=== PATIENT | male | born 1960 | race Caucasian/White ===

== ENCOUNTER 2016-07-15 09:04 | Emergency (ER) | payer MEDICARE ==
[2016-07-15] MEDS ORDERED: OXYCODONE-ACETAMINOPHEN 5-325 MG TABLET PO ONE (11:02)
[2016-07-15] MEDS ORDERED: METHOCARBAMOL 500 MG TABLET PO ONE (11:02)
[2016-07-15 11:34] LABS: ABSOLUTE BASOPHILS # (AUTO) 0.1 10^3/uL (0.0-0.2); ABSOLUTE EOSINOPHILS # (AUTO) 0.1 10^3/uL (0.0-0.6); ABSOLUTE LYMPHOCYTES (AUTO) 1.1 10^3/uL (0.5-4.7); ABSOLUTE MONOCYTES (AUTO) 0.5 10^3/uL (0.1-1.4); ABSOLUTE NEUT (AUTO) 3.5 10^3/uL (1.7-8.2); BASOPHILS % (AUTO) 1.3 % (0-2); EOSINOPHILS % (AUTO) 1.7 % (0-6); HEMATOCRIT 41.4 % (37.9-51.0); HEMOGLOBIN 14.6 g/dL (13.5-17.0); HGB HCT DIFFERENCE 2.4; LYMPHOCYTES % (AUTO) 21.3 % (13-45); MEAN CORPUSCULAR HEMOGLOBIN 30.8 pg (27.0-33.4); MEAN CORPUSCULAR HGB CONC 35.1 g/dL (32.0-36.0); MEAN CORPUSCULAR VOLUME 88 fl (80-97); MONOCYTES % (AUTO) 9.4 % (3-13); RED BLOOD COUNT 4.72 10^6/uL (4.35-5.55); RED CELL DISTRIBUTION WIDTH 13.7 % (11.5-14.0); SEGMENTED NEUTROPHILS % (AUTO) 66.3 % (42-78); WHITE BLOOD COUNT 5.3 10^3/uL (4.0-10.5)
[2016-07-15 11:52] LABS: ALANINE AMINOTRANSFERASE 43 U/L (21-72); ALBUMIN 4.4 g/dL (3.5-5.0); ALKALINE PHOSPHATASE 43 U/L (38-126); ANION GAP 15 (5-19); ASPARTATE AMINO TRANSFERASE 21 U/L (17-59); BILIRUBIN,DIRECT 0.2 mg/dL (0.0-0.4); BILIRUBIN,TOTAL 0.5 mg/dL (0.2-1.3); BLOOD UREA NITROGEN 17 mg/dL (7-20); CARBON DIOXIDE 27 mmol/L (22-30); CHLORIDE 102 mmol/L (98-107); CREATINE KINASE 103 U/L (55-170); GLUCOSE 86 mg/dL (75-110); LIPASE 137.5 U/L (23-300); POTASSIUM 4.4 mmol/L (3.6-5.0); SODIUM 143.7 mmol/L (137-145); TOTAL PROTEIN 6.7 g/dL (6.3-8.2)
--- NOTE | 2016-07-15 12:20 | ER Document Report ---
ED Neck/Back Problem - General Chief Complaint: Back Pain Stated Complaint: BACK PAIN Notes: Patient is complaining of pain in the lower lumbar region of his back bilaterally since about Friday, 5 days ago. He recalls no unusual activity or heavy lifting or straining of his back. Has not had problems with his lumbar back in the past. He did have some neck pain with some numbness in his right arm and was seen at a local urgent care about 3 weeks ago for this condition. He was told he had bone spurs on an x-ray of the neck. He has an appointment scheduled to see a neurologist for this problem on Friday. He was not having lower, lumbar back pain at that time. Patient says the pain goes down the back of his right leg. Patient has a significant past history for having prostate cancer for which he had his prostate removed in 2000. He had a recurrence of the prostate cancer about a year ago and underwent radiation therapy at that time. He is being followed by a urologist in [place], Dr. Cross and last saw him 2 months ago and was told his PSA was okay at that time. Patient has had problems with urinary incontinence and had to retire because of that. He underwent a procedure at [facility] in December,, to insert a device to help him urinate to help control the urinary incontinence. Patient was diagnosed with leukemia in 2000 and is undergoing chemotherapy most recently in [id number]. He is under the care of a Dr. Correa, in [place]. TRAVEL OUTSIDE OF THE [place] IN LAST 30 DAYS: No - Related Data Allergies/Adverse Reactions: No Known Allergies Allergy (Verified 07/15/16 09:14) Past Medical History - Social History Smoking Status: Never Smoker Chew tobacco use (# tins/day): No Frequency of alcohol use: None Drug Abuse: None Family History: Reviewed & Not Pertinent Patient has suicidal ideation: No Patient has homicidal ideation: No - Past Medical History Cardiac Medical History: Reports: Hx Hypercholesterolemia, Hx Hypertension Denies: Hx Coronary Artery Disease Pulmonary Medical History: Reports: Hx Pneumonia - April 2012 ("touch") Endocrine Medical History: Reports: Hx Diabetes Mellitus Type 1, Hx Diabetes Mellitus Type 2, Hx Hypothyroidism Malignancy Medical History: Reports 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 Denies recent illness. Did have recent neck pain and radiculopathy into the right arm, seen at a local urgent care and diagnosed with bone spurs. EENT: Denies eye, ear, nose or mouth or throat pain or other symptoms. CARDIOVASCULAR: Denies chest pain. RESPIRATORY: Denies cough or chest congestion or shortness of breath. GASTROINTESTINAL: Denies abdominal pain or nausea, vomiting, or diarrhea. GENITOURINARY: Denies difficulty or painful urinating, urinary frequency, blood in urine. MUSCULOSKELETAL: Denies joint pain or swelling. See history of present illness regarding back and neck pain. SKIN: Denies rash. HEMATOLOGIC : Denies easy bruising or bleeding. LYMPHATIC: Denies swollen glands. NEUROLOGICAL: Denies loss of consciousness or altered mental status. Denies headache. Denies problems with balance or speech. Denies sensory loss or numbness. Denies motor deficits. Patient is able to stand and walk, but it's painful to do so. PSYCHIATRIC: Denies anxiety or stress. History of depression. ALL OTHER SYSTEMS REVIEWED AND NEGATIVE. Physical Exam - Vital signs Vitals: Temp Pulse Resp BP Pulse Ox 98.0 F 62 20 165/80 H 98 07/15/16 09:11 07/15/16 09:11 07/15/16 09:11 07/15/16 09:11 07/15/16 09:11 Interpretation: Normal - Notes Notes: PHYSICAL EXAMINATION: GENERAL: Well-appearing, in no acute distress. Vital signs are all essentially normal. Afebrile. HEAD: Atraumatic, normocephalic. NECK: Normal range of motion, supple. Indicates discomfort with neck movement. LUNGS: Breath sounds clear and equal bilaterally. HEART: Regular rate and rhythm without murmurs. ABDOMEN: Soft, nontender. No guarding or rebound. No masses. No bruits heard. Good femoral pulses bilaterally. BACK: Tender paralumbar muscles bilaterally. EXTREMITIES: Normal range of motion without pain. Negative straight leg raising bilaterally. NEUROLOGICAL: Normal speech, appears painful to stand or walk. Normal sensory , motor, and reflex exams. Awake, alert, and oriented x3. Cranial nerves normal. PSYCH: Normal mood, normal affect. SKIN: Warm, dry, no rashes. Course - Re-evaluation Re-evalutation: 07/15/16 13:21 All the patient's lab studies are normal. Urinalysis negative. PSA negative. CBC shows normal cell counts. Patient says he has an appointment to see a neurologist Friday, in 2 days, regarding his neck pain and symptoms. I advised him to make sure that he informs the neurologist of this lumbar back pain that is also having. I did check on the [facility] pharmacy about the patient's prescriptions for controlled substances and found that he had had just 3 small prescriptions filled last fall, but none in the past couple of months. I think the patient is legitimate we experiencing back pain, unfortunately without a obvious cause that we can treat. Therefore, going to treat him symptomatically with muscle relaxer and pain medication. - Vital Signs Vital signs: Temp Pulse Resp BP Pulse Ox 97.5 F 63 18 190/77 H 96 07/15/16 13:33 07/15/16 13:33 07/15/16 13:33 07/15/16 13:33 07/15/16 13:33 - Laboratory Result Diagrams: 07/15/16 11:10 07/15/16 11:10 - Diagnostic Test Radiology reviewed: Image reviewed, Reports reviewed - Ultrasound of the aorta shows no evidence of an abdominal aortic aneurysm. Radiology results interpreted by me: 07/15/16 13:20 X-rays of the lumbosacral spine are all normal. Discharge - Discharge Clinical Impression: Acute lumbar back pain Qualifiers: Back pain laterality: bilateral Sciatica presence: with sciatica Sciatica laterality: sciatica of right side Qualified Code(s): M54.41 - Lumbago with sciatica, right side Condition: Stable Disposition: HOME, SELF-CARE Additional Instructions: LOW BACK PAIN: Three out of every four people will have an episode of disabling back pain during their lifetime. Most commonly the pain is due to straining of the muscles and ligaments in the low back. Usual treatment includes: (1) Rest on a firm surface. Avoid lying on your stomach. (2) Ice pack the painful area. After a few days, gentle heat may be used intermittently to relax the area, or ice packs can be continued. (3) Medication may be needed -- muscle relaxers and antiinflammatory medicines are commonly used. (4) As the back improves, exercises are prescribed to strengthen the back and abdominal muscles. Your doctor will advise you on the proper care for your back at each stage in your recovery. You may be better in a few days -- or healing may take several weeks. If new symptoms of a "herniated disc" (radiation of pain, numbness, or tingling down the back of the leg or weakness in the leg) occur, you should be re-examined. Further testing may be necessary. ORAL NARCOTIC MEDICATION: You have been given a prescription for pain control. This medication is a narcotic. It's best taken with food, as nausea can result if taken on an empty stomach. Don't operate machinery or drive within six hours of taking this medication. Do not combine this medicine with alcohol, or with any medication which can cause sedation (such as cold tablets or sleeping pills) unless you get permission from the physician. Narcotics tend to cause constipation. If possible, drink plenty of fluids and eat a diet high in fiber and fruits. MUSCLE RELAXERS: Muscle relaxing medications are usually prescribed for acute muscle spasm or injury to the neck and back. They are often combined with antiinflammatory pain medication for increased relief. You may stop the muscle relaxer when the pain and stiffness have improved. Start the medication again if spasms recur. Muscle relaxers may cause drowsiness, especially with the first dose. Do not operate machinery or drive while under the effects of the medication. Most muscle relaxers last up to 24 hours. Do not combine the medication with alcohol. FOLLOW-UP CARE: If you have been referred to a physician for follow-up care, call the physician s office for an appointment as you were instructed or within the next two days. If you experience worsening or a significant change in your symptoms, notify the physician immediately or return to the Emergency Department at any time for re-evaluation. Make sure you informed the neurologist that you're going to see on Friday of the back pain that you're experiencing. You need to follow-up with your primary care physician because we do not manage chronic pain in the emergency department. Prescriptions: Methocarbamol [Robaxin 500 mg Tablet] 1,000 mg PO QID #60 tablet Oxycodone HCl/Acetaminophen [Percocet 5-325 mg Tablet] 1 - 2 tab PO Q4H PRN #15 tablet PRN Reason:
[2016-07-15 12:25] LABS: PROSTATE SPECIFIC ANTIGEN < 0.064 ng/mL (<4.00)
[2016-07-15 12:51] LABS: APPEARANCE,URINE CLEAR; BILIRUBIN,URINE NEGATIVE (NEGATIVE); GLUCOSE, URINE NEGATIVE (NEGATIVE); KETONES,URINE NEGATIVE (NEGATIVE); LEUKOCYTE ESTERASE,URINE NEGATIVE (NEGATIVE); NITRITE,URINE NEGATIVE (NEGATIVE); PROTEIN,URINE NEGATIVE (NEGATIVE); URINE SPECIFIC GRAVITY 1.004; UROBILINOGEN,URINE NEGATIVE mg/dL (<2.0)
[2016-07-15 13:34] VITALS: BP 190/77
== END 2016-07-15 13:34 | disposition home or self-care (01) ==
LOC: ER 09:04
DX: M54.41 Lumbago with sciatica, right side (principal); M54.9 Dorsalgia, unspecified; Z85.46 Personal history of malignant neoplasm of prostate
CPT/HCPCS: 99284; 36415; 82550; 83690; 84153; 85025; 80053; 81001; 72110; 76706; A9270 ×2

== ENCOUNTER 2016-12-16 08:53 | Emergency (ER) | payer MEDICARE ==
[2016-12-16 09:07] VITALS: BP 182/69
[2016-12-16] MEDS ORDERED: CIPROFLOXACIN HCL/DEXAMETH OTIC DROP 7.5 ML AS ONE (09:33)
--- NOTE | 2016-12-16 09:36 | ER Document Report ---
HPI - HPI Patient complains to provider of: Left ear pain Onset: Other - 3 days Onset/Duration: Persistent Quality of pain: Achy Pain Level: 4 Context: Patient presents complaining of left ear pain with drainage for the past 3 days. Patient does report pain started after he had been swimming in his girlfriend's pool. Associated Symptoms: Other - Left ear pain Exacerbated by: Denies Relieved by: Denies Similar symptoms previously: Yes Recently seen / treated by doctor: No - ROS ROS below otherwise negative: Yes Systems Reviewed and Negative: Yes All other systems reviewed and negative - CONSTITUTIONAL Constitutional: DENIES: Fever - EENT EENT: REPORTS: Ear Pain - GASTROINTESTINAL Gastrointestinal: DENIES: Nausea, Patient vomiting - REPRODUCTIVE Reproductive: DENIES: : - MUSCULOSKELETAL Musculoskeletal: DENIES: Neck Pain - DERM Skin Color: Normal Skin Problems: None Past Medical History - General Information source: Patient - Social History Smoking Status: Never Smoker Frequency of alcohol use: None Drug Abuse: None Lives with: Spouse/Significant other Family History: Reviewed & Not Pertinent Patient has suicidal ideation: No Patient has homicidal ideation: No - Past Medical History Cardiac Medical History: Reports: Hx Hypercholesterolemia, Hx Hypertension Denies: Hx Coronary Artery Disease Pulmonary Medical History: Reports: Hx Pneumonia - April 2012 ("touch") Endocrine Medical History: Reports: Hx Diabetes Mellitus Type 1, Hx Diabetes Mellitus Type 2, Hx Hypothyroidism Renal/ Medical History: Denies: Hx Peritoneal Dialysis Malignancy Medical History: Reports 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., Reports Hx Prostate Cancer - AUGUST 2000 GI Medical History: Reports: Hx Gastroesophageal Reflux Disease Psychiatric Medical History: Reports: Hx Depression Past Surgical History: Reports: Hx Cardiac Catheterization - IN 2007 NO STENT, "VEIN WAS TOO WEAK, SO THEY LEFT IT BLOCKED", Hx Cholecystectomy - 08/2012, Hx Genitourinary Surgery - prostate, Hx Tonsillectomy - Immunizations Hx Diphtheria, Pertussis, Tetanus Vaccination: Yes - Tetanus only Hx Pneumococcal Vaccination: 09/02/12 Vertical Provider Document - CONSTITUTIONAL Agree With Documented VS: Yes Exam Limitations: No Limitations General Appearance: WD/WN, No Apparent Distress - INFECTION CONTROL TRAVEL OUTSIDE OF THE [place] IN LAST 30 DAYS: No - HEENT HEENT: Atraumatic, Normocephalic. negative: Tympanic Membrane Red, Tympanic Membrane Bulging Notes: Patient with tenderness to left ear with movement of helix. Patient with exudate to left external auditory canal. No mastoid tenderness or swelling. - NECK Neck: Normal Inspection, Supple - RESPIRATORY Respiratory: Breath Sounds Normal, No Respiratory Distress O2 Sat by Pulse Oximetry: 97 - CARDIOVASCULAR Cardiovascular: Regular Rate, Regular Rhythm - MUSCULOSKELETAL/EXTREMETIES Musculoskeletal/Extremeties: MAEW - NEURO Level of Consciousness: Awake, Alert, Appropriate Motor/Sensory: No Motor Deficit - DERM Integumentary: Warm, Dry, No Rash Course - Vital Signs Vital signs: Temp Pulse Resp BP Pulse Ox 98.1 F 59 L 182/69 H 97 12/16/16 09:03 12/16/16 09:03 12/16/16 09:03 12/16/16 09:03 Discharge - Discharge Clinical Impression: Hx of essential hypertension Otitis externa Qualifiers: Otitis externa type: unspecified type Chronicity: acute Laterality: left Qualified Code(s): H60.502 - Unspecified acute noninfective otitis externa, left ear Condition: Stable Disposition: HOME, SELF-CARE Instructions: Use of Ear Drops ([facility]), Otitis Externa ([facility]) Additional Instructions: Return immediately for any new or worsening symptoms Followup with your primary care provider, call tomorrow to make a followup appointment Ciprodex eardrops, instill 4 drops to left ear twice a day for 7 days Avoid any water exposure into your ear Forms: Elevated Blood Pressure Referrals: [facility] [Provider Group] - Follow up as needed
== END 2016-12-16 09:49 | disposition home or self-care (01) ==
LOC: ER 08:53
DX: H60.502 Unspecified acute noninfective otitis externa, left ear (principal); I10 Essential (primary) hypertension; E78.00 Pure hypercholesterolemia, unspecified; E11.9 Type 2 diabetes mellitus without complications; E03.9 Hypothyroidism, unspecified; Z85.46 Personal history of malignant neoplasm of prostate; Z85.6 Personal history of leukemia; Z90.49 Acquired absence of other specified parts of digestive tract
CPT/HCPCS: 99282; J3490

== ENCOUNTER 2018-03-11 14:22 | Emergency (ER) | payer MEDICARE ==
--- NOTE | 2018-03-11 15:06 | ER Document Report ---
ED Medical Screen (RME) - General Chief Complaint: Abdominal Distention Stated Complaint: FEET AND LEG SWELLING Time Seen by Provider: 03/11/18 15:03 Notes: 57 years old male with a history of CLL, prostate cancer, hypertension, presents today with bilateral lower leg swelling over the last few days, bloating sensation of the abdomen as well as chronically constipated because of taking oxycodone. Denies any difficulty in breathing or chest pain. Denies any nausea vomiting. Abdomen distended nontender. Lower extremity has 4+ pitting edema all the way from knee downwards. TRAVEL OUTSIDE OF THE [place] IN LAST 30 DAYS: No - Related Data Allergies/Adverse Reactions: No Known Allergies Allergy (Verified 03/11/18 14:22) Past Medical History - Social History Chew tobacco use (# tins/day): No Frequency of alcohol use: None Drug Abuse: None - Past Medical History Cardiac Medical History: Reports: Hx Hypercholesterolemia, Hx Hypertension Denies: Hx Coronary Artery Disease Pulmonary Medical History: Reports: Hx Pneumonia - April 2012 ("touch") Endocrine Medical History: Reports: Hx Diabetes Mellitus Type 1, Hx Diabetes Mellitus Type 2, Hx Hypothyroidism Renal/ Medical History: Denies: Hx Peritoneal Dialysis Malignancy Medical History: Reports 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., Reports Hx Prostate Cancer - AUGUST 2000 GI Medical History: Reports: Hx Gastroesophageal Reflux Disease Psychiatric Medical History: Reports: Hx Depression Past Surgical History: Reports: Hx Cardiac Catheterization - IN 2007 NO STENT, "VEIN WAS TOO WEAK, SO THEY LEFT IT BLOCKED", Hx Cholecystectomy - 08/2012, Hx Genitourinary Surgery - prostate, Hx Tonsillectomy - Immunizations Hx Diphtheria, Pertussis, Tetanus Vaccination: Yes - Tetanus only Physical Exam - Vital signs Vitals: Temp Pulse Resp BP Pulse Ox 97.9 F 67 19 166/65 H 97 03/11/18 14:25 03/11/18 14:25 03/11/18 14:25 03/11/18 14:25 03/11/18 14:25 Course - Vital Signs Vital signs: Temp Pulse Resp BP Pulse Ox 97.9 F 67 19 166/65 H 97 03/11/18 14:25 03/11/18 14:25 03/11/18 14:25 03/11/18 14:25 03/11/18 14:25 Doctor's Discharge - Discharge Referrals: VERONICA AMOS MD [Primary Care Provider] - Follow up as needed
[2018-03-11 15:54] LABS: ABSOLUTE BASOPHILS # (AUTO) 0.1 10^3/uL (0.0-0.2); ABSOLUTE EOSINOPHILS # (AUTO) 0.2 10^3/uL (0.0-0.6); ABSOLUTE LYMPHOCYTES (AUTO) 1.3 10^3/uL (0.5-4.7); ABSOLUTE MONOCYTES (AUTO) 0.6 10^3/uL (0.1-1.4); ABSOLUTE NEUT (AUTO) 4.2 10^3/uL (1.7-8.2); BASOPHILS % (AUTO) 1.1 % (0-2); EOSINOPHILS % (AUTO) 2.8 % (0-6); HEMATOCRIT 39.4 % (37.9-51.0); HEMOGLOBIN 13.4 g/dL (13.5-17.0); LYMPHOCYTES % (AUTO) 20.7 % (13-45); MEAN CORPUSCULAR HGB CONC 34.2 g/dL (32.0-36.0); MEAN CORPUSCULAR VOLUME 91 fl (80-97); MONOCYTES % (AUTO) 9.9 % (3-13); PLATELET COUNT 201 10^3/uL (150-450); RED BLOOD COUNT 4.34 10^6/uL (4.35-5.55); RED CELL DISTRIBUTION WIDTH 14.1 % (11.5-14.0); SEGMENTED NEUTROPHILS % (AUTO) 65.5 % (42-78); TOTAL CELLS COUNTED % (AUTO) 100 %; WHITE BLOOD COUNT 6.4 10^3/uL (4.0-10.5)
--- NOTE | 2018-03-11 16:15 | RADIOLOGY REPORT (SQ) ---
EXAM DESCRIPTION: ACUTE ABDOMEN SERIES COMPLETED DATE/TIME: 03/11/2018 4:01 pm REASON FOR STUDY: Abdominal pain COMPARISON: 09/07/2012 NUMBER OF VIEWS: Three views. TECHNIQUE: Frontal chest, supine abdomen and upright/decubitus abdomen radiographic images acquired. LIMITATIONS: None. FINDINGS: CHEST: Lungs clear of infiltrates. FREE AIR: None. No abnormal gas collections. BOWEL GAS PATTERN: Nonobstructive pattern. No dilated loops or air fluid levels. CALCIFICATIONS: No suspicious calcifications. HARDWARE: There are clips in the right upper quadrant consistent with prior cholecystectomy. Reservo ir some type overlies the right lower pelvis presumably related to penile implant. SOFT TISSUES: No gross mass or suggestion of organomegaly. BONES: No acute fracture. No worrisome bone lesions. OTHER: No other significant finding. IMPRESSION: NO RADIOGRAPHIC EVIDENCE FOR ACUTE ABDOMINAL DISEASE. TECHNICAL DOCUMENTATION: JOB ID: [id number] [employer]- All Rights Reserved Reading location - IP/workstation name: [email or web address]
[2018-03-11 16:20] LABS: ALANINE AMINOTRANSFERASE 24 U/L (21-72); ALBUMIN 3.9 g/dL (3.5-5.0); ALKALINE PHOSPHATASE 54 U/L (38-126); ANION GAP 17 (5-19); ASPARTATE AMINO TRANSFERASE 19 U/L (17-59); BILIRUBIN,DIRECT 0.3 mg/dL (0.0-0.4); BILIRUBIN,TOTAL 0.4 mg/dL (0.2-1.3); BLOOD UREA NITROGEN 31 mg/dL (7-20); CARBON DIOXIDE 21 mmol/L (22-30); CHLORIDE 105 mmol/L (98-107); CREATINE KINASE 131 U/L (55-170); GLUCOSE 163 mg/dL (75-110); POTASSIUM 4.3 mmol/L (3.6-5.0); SODIUM 143.2 mmol/L (137-145); TOTAL PROTEIN 6.3 g/dL (6.3-8.2)
[2018-03-11 16:31] LABS: CREATINE KINASE MB 1.31 ng/mL (<4.55); NT PRO BNP 250 pg/mL (5-900)
--- NOTE | 2018-03-11 16:33 | ER Document Report ---
ED General - General Chief Complaint: Abdominal Distention Stated Complaint: FEET AND LEG SWELLING Time Seen by Provider: 03/11/18 15:03 Mode of Arrival: Ambulatory Information source: Patient Notes: 57-year-old male with a history of CLL and prostate cancer presents emergency department with complaints of lower extremity swelling and abdominal bloating. No abdominal pain but patient is having a bloated sensation. Patient has a urinary control system in place. He is on oxycodone for hx of chronic back pain and is constipated frequently. He has been having small bowel movements and passing gas. He denies nausea, vomiting, diarrhea, dysuria, hematuria. Patient is not currently undergoing any treatment for his CLL or prostate cancer. He is being followed by oncologist and urologist in [place]. His urologist is Dr. Cross. He is currently on keflex for urinary tract infections. He states that today he noticed swelling to his bilateral feet. He did not noticed this yesterday. He denies a history of congestive heart failure, chest pain, shortness of breath, calf swelling, calf pain. TRAVEL OUTSIDE OF THE [place] IN LAST 30 DAYS: No - HPI Onset: This morning Onset/Duration: Sudden Quality of pain: No pain Severity: None Pain Level: Denies Associated symptoms: Other - constipation Exacerbated by: Denies Relieved by: Denies Similar symptoms previously: Yes Recently seen / treated by doctor: No - Related Data Allergies/Adverse Reactions: No Known Allergies Allergy (Verified 03/11/18 14:22) Past Medical History - General Information source: Patient - Social History Smoking Status: Never Smoker Chew tobacco use (# tins/day): No Frequency of alcohol use: None Drug Abuse: None Family History: Reviewed & Not Pertinent Patient has suicidal ideation: No Patient has homicidal ideation: No - Past Medical History Cardiac Medical History: Reports: Hx Hypercholesterolemia, Hx Hypertension Denies: Hx Coronary Artery Disease Pulmonary Medical History: Reports: Hx Pneumonia - April 2012 ("touch") Endocrine Medical History: Reports: Hx Diabetes Mellitus Type 1, Hx Diabetes Mellitus Type 2, Hx Hypothyroidism Renal/ Medical History: Denies: Hx Peritoneal Dialysis Malignancy Medical History: Reports 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., Reports Hx Prostate Cancer - AUGUST 2000 GI Medical History: Reports: Hx Gastroesophageal Reflux Disease Psychiatric Medical History: Reports: Hx Depression Past Surgical History: Reports: Hx Cardiac Catheterization - IN 2007 NO STENT, "VEIN WAS TOO WEAK, SO THEY LEFT IT BLOCKED", Hx Cholecystectomy - 08/2012, Hx Genitourinary Surgery - prostate, Hx Tonsillectomy - Immunizations Hx Diphtheria, Pertussis, Tetanus Vaccination: Yes - Tetanus only Hx Pneumococcal Vaccination: 09/02/12 Review of Systems - Review of Systems Constitutional: No symptoms reported EENT: No symptoms reported Cardiovascular: No symptoms reported Respiratory: No symptoms reported Gastrointestinal: Constipation Genitourinary: No symptoms reported Male Genitourinary: No symptoms reported Musculoskeletal: No symptoms reported, Ankle swelling Skin: No symptoms reported Hematologic/Lymphatic: No symptoms reported Neurological/Psychological: No symptoms reported -: Yes All other systems reviewed and negative Physical Exam - Vital signs Vitals: Temp Pulse Resp BP Pulse Ox 97.9 F 67 19 166/65 H 97 03/11/18 14:25 03/11/18 14:25 03/11/18 14:25 03/11/18 14:25 03/11/18 14:25 - Notes Notes: PHYSICAL EXAMINATION: GENERAL: Well-appearing, well-nourished and in no acute distress. HEAD: Atraumatic, normocephalic. EYES: Pupils equal round and reactive to light, extraocular movements intact, sclera anicteric, conjunctiva are normal. ENT: Nares patent, oropharynx clear without exudates. Moist mucous membranes. NECK: Normal range of motion, supple without lymphadenopathy LUNGS: Breath sounds clear to auscultation bilaterally and equal. No wheezes rales or rhonchi. HEART: Regular rate and rhythm without murmurs ABDOMEN: Soft, nontender, abdomen. Distention noted. No guarding, no rebound. Musculoskeletal: Normal range of motion, no pitting edema. No cyanosis. NEUROLOGICAL: Cranial nerves grossly intact. Normal speech, normal gait. Normal sensory, motor exams PSYCH: Normal mood, normal affect. SKIN: Warm, Dry, normal turgor, no rashes or lesions noted. Course - Re-evaluation Re-evalutation: 03/11/18 20:33 03/11/18 20:36 Labs and imaging obtained. Patient's creatinine is elevating. It is 2.[address] abdomen pelvis was done for the abdominal distention. 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 I contacted the urologist on-call at [facility] for Dr. Cross. I discussed the patient with him. He feels that the urinary control system may be malfunctioning. He would like the patient to follow-up in the office tomorrow to troubleshoot the artificial sphincter and monitor the creatinine outpatient. Patient is currently on Keflex for UTI. No signs of infection in his urine. I will discharge the patient home. Patient told to follow-up with Dr. Cross tomorrow, to continue taking his medication as directed, and to return to emergency department if he begins having any worsening symptoms. Patient is agreeable to plan of care. 03/11/18 20:38 - Vital Signs Vital signs: Temp Pulse Resp BP Pulse Ox 98.0 F 67 13 178/77 H 98 03/11/18 18:35 03/11/18 14:25 03/11/18 18:24 03/11/18 18:24 03/11/18 18:24 - Laboratory Result Diagrams: 03/11/18 13:41 03/11/18 13:41 Laboratory results interpreted by me: 03/11/18 03/11/18 13:41 13:41 RBC 4.34 L Hgb 13.4 L RDW 14.1 H Carbon Dioxide 21 L BUN 31 H Creatinine 2.09 H Est GFR ( Amer) 40 L Est GFR (Non-Af Amer) 33 L Glucose 163 H Discharge - Discharge Clinical Impression: Renal failure Qualifiers: Renal failure chronicity: acute Acute renal failure type: unspecified Qualified Code(s): N17.9 - Acute kidney failure, unspecified Condition: Good Disposition: HOME, SELF-CARE Instructions: Kidney Failure ([facility]) Referrals: VERONICA AMOS MD [Primary Care Provider] - Follow up as needed
[2018-03-11 16:40] LABS: TROPONIN I < 0.012 ng/mL
[2018-03-11] MEDS ORDERED: NORMAL SALINE 1000 ML 1,000 ML IV ONE (18:10)
--- NOTE | 2018-03-11 18:26 | RADIOLOGY REPORT (SQ) ---
EXAM DESCRIPTION: CT ABD/PELVIS NO ORAL OR IV COMPLETED DATE/TIME: 03/11/2018 5:54 pm REASON FOR STUDY: abdominal distention COMPARISON: None. TECHNIQUE: CT scan of the abdomen and pelvis performed without intravenous or oral contrast. Images reviewed with lung, soft tissue, and bone windows. Reconstructed coronal and sagittal MPR images revi ewed. All images stored on PACS. All CT scanners at this facility use dose modulation, iterative reconstruction, and/or weight based d osing when appropriate to reduce radiation dose to as low as reasonably achievable (ALARA). [facility]: Dose Right [facility]: CareDose [facility]: Dose Right [facility]: Teradose 4D [facility]: Smart [employer] RADIATION DOSE: CT Rad equipment meets quality standard of care and radiation dose reduction techniq ues were employed. CTDIvol: 11.8 mGy. DLP: 669 mGy-cm.mGy. LIMITATIONS: None. FINDINGS: LOWER CHEST: No significant findings. No nodules or infiltrates. NON-CONTRASTED LIVER, SPLEEN, ADRENALS: Evaluation limited by lack of IV contrast. No identified sign ificant masses. PANCREAS: No masses. No peripancreatic inflammatory changes. GALLBLADDER: Surgically absent. RIGHT KIDNEY AND URETER: Hydronephrosis and hydroureter down into the pelvis. No obstructing stone i s appreciated. Urinary bladder is markedly distended. LEFT KIDNEY AND URETER: Hydronephrosis and hydroureter. No obstructing calculus is appreciated. The urinary bladder is markedly distended. AORTA AND RETROPERITONEUM: No aneurysm. No retroperitoneal masses or adenopathy. BOWEL AND PERITONEAL CAVITY: No obvious masses or inflammatory changes. No free fluid. APPENDIX: Not identified. PELVIS, BLADDER, AND ABDOMINAL WALL:There is marked distention of the urinary bladder. Possible kristin ficial sphincter. BONES: No significant findings. OTHER: No other significant finding. IMPRESSION: Marked distention of the urinary bladder, possibly related to a malfunctioning artificia l sphincter. Correlate clinically. COMMENT: Quality ID # [id number]: Final reports with documentation of one or more dose reduction techniques (e.g., Automated exposure control, adjustment of the mA and/or kV according to patient size, use of iterative reconstruction technique) TECHNICAL DOCUMENTATION: JOB ID: [id number] [employer]- All Rights Reserved Reading location - IP/workstation name: [email or web address]
[2018-03-11 18:57] LABS: APPEARANCE,URINE CLEAR; BILIRUBIN,URINE NEGATIVE (NEGATIVE); COLOR,URINE YELLOW; GLUCOSE, URINE NEGATIVE (NEGATIVE); KETONES,URINE NEGATIVE (NEGATIVE); LEUKOCYTE ESTERASE,URINE NEGATIVE (NEGATIVE); NITRITE,URINE NEGATIVE (NEGATIVE); PROTEIN,URINE NEGATIVE (NEGATIVE); URINE SPECIFIC GRAVITY 1.011; UROBILINOGEN,URINE NEGATIVE mg/dL (<2.0)
[2018-03-11 21:29] VITALS: BP 184/77
--- NOTE | 2018-03-12 08:54 | EKG REPORT ---
SEVERITY:- ABNORMAL ECG - SINUS RHYTHM LEFT AXIS DEVIATION NONSPECIFIC T ABNORMALITIES, INFERIOR LEADS CAN NOT R/O INF SD OLD : Confirmed by: Veronica Claudio 12-Mar-2018 08:53:29
== END 2018-03-11 22:00 | disposition home or self-care (01) ==
LOC: ER 14:22
DX: N17.9 Acute kidney failure, unspecified (principal); N39.0 Urinary tract infection, site not specified; K59.00 Constipation, unspecified; I10 Essential (primary) hypertension; E11.9 Type 2 diabetes mellitus without complications; M54.9 Dorsalgia, unspecified; G89.29 Other chronic pain; Z79.891 Long term (current) use of opiate analgesic; Z85.46 Personal history of malignant neoplasm of prostate; Z85.6 Personal history of leukemia
CPT/HCPCS: 93005; 99285; 96360; 36415; 82553; 82550; 85025; 80053; 81001; 84484; 83880; 74022; 74176; 93010; J7030

== ENCOUNTER 2018-04-20 10:12 | Emergency (ER) | payer MEDICARE ==
[2018-04-20 10:23] VITALS: BP 144/64
--- NOTE | 2018-04-20 12:12 | ER Document Report ---
ED General - General Chief Complaint: Catheter Issue Stated Complaint: CATHETER ISSUES Time Seen by Provider: 04/20/18 11:04 Mode of Arrival: Ambulatory Information source: Patient TRAVEL OUTSIDE OF THE [place] IN LAST 30 DAYS: No - HPI Patient complains to provider of: Catheter malfunction Onset: Other - 57-year-old male with an indwelling suprapubic catheter as a result of urinary retention in the past was followed at the [facility] primarily for suprapubic catheter notes that the base of it broke off at the stop cock this morning prompting him to have the sensation of very full bladder. He was able to turn the stopcock thereafter and drain his bladder but is concerned because the bag cannot attached to it at this time. He endorses a little bit of fullness but is unable to drain it intermittently since that time. Denies fever chills abdominal pain diarrhea constipation or other trauma to the abdomen. - Related Data Allergies/Adverse Reactions: No Known Allergies Allergy (Verified 04/20/18 10:14) Past Medical History - General Information source: Patient - Social History Smoking Status: Current Some Day Smoker Frequency of alcohol use: None Drug Abuse: None Family History: Reviewed & Not Pertinent Patient has suicidal ideation: No Patient has homicidal ideation: No - Past Medical History Cardiac Medical History: Reports: Hx Hypercholesterolemia, Hx Hypertension Denies: Hx Coronary Artery Disease Pulmonary Medical History: Reports: Hx Pneumonia - April 2012 ("touch") Endocrine Medical History: Reports: Hx Diabetes Mellitus Type 1, Hx Diabetes Mellitus Type 2, Hx Hypothyroidism Renal/ Medical History: Denies: Hx Peritoneal Dialysis Malignancy Medical History: Reports 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., Reports Hx Prostate Cancer - AUGUST 2000 GI Medical History: Reports: Hx Gastroesophageal Reflux Disease Psychiatric Medical History: Reports: Hx Depression Past Surgical History: Reports: Hx Cardiac Catheterization - IN 2007 NO STENT, "VEIN WAS TOO WEAK, SO THEY LEFT IT BLOCKED", Hx Cholecystectomy - 08/2012, Hx Genitourinary Surgery - prostate, Hx Tonsillectomy - Immunizations Hx Diphtheria, Pertussis, Tetanus Vaccination: Yes - Tetanus only Hx Pneumococcal Vaccination: 09/02/12 Review of Systems - Review of Systems -: Yes All other systems reviewed and negative Physical Exam - Vital signs Vitals: Temp Pulse Resp BP Pulse Ox 98.4 F 70 20 144/64 H 97 04/20/18 10:22 04/20/18 10:22 04/20/18 10:22 04/20/18 10:22 04/20/18 10:22 Interpretation: Normal - General General appearance: Appears well, Alert - HEENT Head: Normocephalic, Atraumatic Eyes: Normal Pupils: PERRL - Respiratory Respiratory status: No respiratory distress Chest status: Nontender Breath sounds: Normal Chest palpation: Normal - Cardiovascular Rhythm: Regular Heart sounds: Normal auscultation Murmur: No - Abdominal Inspection: Normal Distension: No distension Bowel sounds: Normal Tenderness: Nontender Organomegaly: No organomegaly - Genitourinary Notes: Suprapubic tenderness, suprapubic catheter in place. - Back Back: Normal, Nontender - Extremities General upper extremity: Normal inspection, Nontender, Normal color, Normal ROM, Normal temperature General lower extremity: Normal inspection, Nontender, Normal color, Normal ROM, Normal temperature, Normal weight bearing. No: Juliet's sign - Neurological Neuro grossly intact: Yes Cognition: Normal Orientation: AAOx4 Raj Coma Scale Eye Opening: Spontaneous [place] Coma Scale Verbal: Oriented [place] Coma Scale Motor: Obeys Commands Raj Coma Scale Total: 15 Speech: Normal Motor strength normal: LUE, RUE, LLE, RLE Sensory: Normal - Psychological Associated symptoms: Normal affect, Normal mood - Skin Skin Temperature: Warm Skin Moisture: Dry Skin Color: Normal Course - Re-evaluation Re-evalutation: 57-year-old male who presents for a catheter problem. Stopcock is still draining actively the connection piece into his bag has broken. T the bag however does not connect appropriately to the peace. We were able to remove the small broken piece at the stop cock and then turned the stopcock into a leg bag. The patient is able to drain his urine at this time. He does not appear to be obstructed and retaining. Because he is able to tolerate this at this time I believe he is likely safe for discharge home as he does have an actively draining suprapubic catheter without any obvious retention. I will plan for him to follow-up with his urologist in regards to this for further treatment. He will be instructed to return in case of any worsening obstruction or otherwise. - Vital Signs Vital signs: Temp Pulse Resp BP Pulse Ox 98.4 F 70 20 144/64 H 97 04/20/18 10:22 04/20/18 10:22 04/20/18 10:22 04/20/18 10:22 04/20/18 10:22 Discharge - Discharge Clinical Impression: Catheter (urine) change required, Urinary retention Condition: Good Disposition: HOME, SELF-CARE Instructions: [facility] ([facility]) Additional Instructions: Your seen today in the emergency department for the problem with your suprapubic catheter. He had evaluation including a physical exam. Your suprapubic catheter was left in place however we did adjust to the way that is draining with the stopcock. Continue to allow your suprapubic catheter to drain. If you have issues disconnect the back, as long as it is able to drain you are okay, drain it as needed with pressure. Call your urologist tomorrow to try and move up your appointment to have it changed out in the coming weeks. If it does not drain and to disconnect the bag and it continues not to be able to drain please return the emergency room as it could be a more serious condition. Referrals: VERONICA AMOS MD [Primary Care Provider] - Follow up as needed
== END 2018-04-20 12:15 | disposition home or self-care (01) ==
LOC: ER 10:12
DX: T83.098A Other mechanical complication of other urinary catheter, initial encounter (principal); R33.9 Retention of urine, unspecified; Y73.8 Miscellaneous gastroenterology and urology devices associated with adverse incidents, not elsewhere classified; F17.210 Nicotine dependence, cigarettes, uncomplicated; E78.00 Pure hypercholesterolemia, unspecified; I10 Essential (primary) hypertension; E11.9 Type 2 diabetes mellitus without complications; E03.9 Hypothyroidism, unspecified; Z85.6 Personal history of leukemia; Z85.46 Personal history of malignant neoplasm of prostate
CPT/HCPCS: 99283

== ENCOUNTER → 2018-07-15 | Outpatient (CLI) | payer MEDICARE ==
[2018-07-15 08:50] LABS: TRIGLYCERIDES 91 mg/dL (<150)
[2018-07-15 09:16] LABS: CHOLESTEROL < 50.00 mg/dL (0-200); DIRECT LDL 31 mg/dL (<100)
[2018-07-16 12:38] LABS: MICROALBUMIN URINE 5.2 ug/mL (Not Estab.)
== END ==
LOC: OD 07:39
PROVIDERS: ATTEND Internal Medicine
DX: E13.9 Other specified diabetes mellitus without complications (principal); E78.5 Hyperlipidemia, unspecified; R10.9 Unspecified abdominal pain; E29.1 Testicular hypofunction; E83.19 Other disorders of iron metabolism
CPT/HCPCS: 36415; 80061; 82043; 82570; 83036; 84443

== ENCOUNTER → 2018-07-21 | Outpatient (CLI) | payer MEDICARE ==
--- NOTE | 2018-07-21 08:50 | RADIOLOGY REPORT (SQ) ---
EXAM DESCRIPTION: CAROTID DOPPLER COMPLETED DATE/TIME: 07/21/2018 8:41 am REASON FOR STUDY: CAROTID STENOSIS I65.29 OCCLUSION AND STENOSIS OF UNSPECIFIED CAROTID ARTERY COMPARISON: None. TECHNIQUE: Grayscale ultrasound, Doppler velocity and spectra, and color Doppler images acquired of the extra-cranial carotid and vertebral arteries. Images stored on PACS. LIMITATIONS: None. FINDINGS: RIGHT CAROTID CCA Velocities: Within normal limits. ICA Velocities Peak systolic 0.70 m/s. End diastolic 0.21 m/s. Proximal ICA/CCA peak systolic ratio 1.03. Spectra normal. No significant plaque. LEFT CAROTID CCA Velocities: Within normal limits. ICA Velocities Peak systolic 1.05 m/s. End diastolic 0.30 m/s. Proximal ICA/CCA peak systolic ratio 1.77. Spectra normal. No significant plaque. VERTEBRAL ARTERIES: Antegrade flow. Normal waveforms. SUBCLAVIAN ARTERIES: No finding. OTHER: No other significant finding. IMPRESSION: NO HEMODYNAMICALLY SIGNIFICANT STENOSIS. COMMENT: Quality ID #195: Velocity criteria are extrapolated from the diameter data as defined by t he Society of Radiologists in Ultrasound Consensus Conference. Radiology 2003: 229; 340-346. TECHNICAL DOCUMENTATION: JOB ID: [id number] [email or web address]- All Rights Reserved Reading location - IP/workstation name: [email or web address]
== END ==
LOC: SP 09:34
PROVIDERS: ATTEND Internal Medicine
DX: I65.29 Occlusion and stenosis of unspecified carotid artery (principal)
CPT/HCPCS: 93880

== ENCOUNTER → 2018-09-29 | Outpatient (CLI) | payer MEDICARE ==
[2018-09-29 08:39] LABS: CHOLESTEROL 68.03 mg/dL (0-200); TRIGLYCERIDES 174 mg/dL (<150)
[2018-09-29 08:50] LABS: DIRECT LDL 32 mg/dL (<100)
[2018-09-29 08:56] LABS: VLDL CHOLESTEROL 34.8 mg/dL (10-31)
== END ==
LOC: OD 07:12
PROVIDERS: ATTEND Internal Medicine
DX: E11.9 Type 2 diabetes mellitus without complications (principal); E78.5 Hyperlipidemia, unspecified
CPT/HCPCS: 36415; 80061; 83036

== ENCOUNTER → 2018-12-30 | Outpatient (CLI) | payer MEDICARE ==
[2018-12-30 08:59] LABS: ALBUMIN 4.2 g/dL (3.5-5.0); ALKALINE PHOSPHATASE 45 U/L (38-126); ASPARTATE AMINO TRANSFERASE 23 U/L (17-59); BILIRUBIN,DIRECT 0.3 mg/dL (0.0-0.4); BILIRUBIN,TOTAL 0.5 mg/dL (0.2-1.3); CHOLESTEROL 56.54 mg/dL (0-200); TOTAL PROTEIN 6.3 g/dL (6.3-8.2); TRIGLYCERIDES 119 mg/dL (<150)
[2018-12-30 09:10] LABS: DIRECT LDL 32 mg/dL (<100)
[2018-12-31 09:37] LABS: CREATININE URINE 122.3 mg/dL (Not Estab.); MICROALBUMIN URINE 22.6 ug/mL (Not Estab.)
== END ==
LOC: OD 07:39
PROVIDERS: ATTEND Family Medicine Geriatric Medicine
DX: E78.2 Mixed hyperlipidemia (principal); R94.5 Abnormal results of liver function studies; E10.9 Type 1 diabetes mellitus without complications
CPT/HCPCS: 36415; 80061; 80076; 82043; 82570; 83036

== ENCOUNTER → 2019-03-01 | Outpatient (CLI) | payer MEDICARE ==
[2019-03-01 09:17] LABS: CHOLESTEROL 77.98 mg/dL (0-200); TRIGLYCERIDES 149 mg/dL (<150)
[2019-03-01 09:28] LABS: DIRECT LDL 35 mg/dL (<100)
== END ==
LOC: OD 07:35
PROVIDERS: ATTEND Family Medicine Geriatric Medicine
DX: E78.5 Hyperlipidemia, unspecified (principal); E03.9 Hypothyroidism, unspecified; Z79.899 Other long term (current) drug therapy
CPT/HCPCS: 36415; 80061; 84443; 84460

== ENCOUNTER 2019-04-22 16:02 | Emergency (ER) | payer MEDICARE ==
--- NOTE | 2019-04-22 16:21 | EKG REPORT ---
SEVERITY:- OTHERWISE NORMAL ECG - SINUS RHYTHM LEFT AXIS DEVIATION : Confirmed by: Radha Falk MD 22-Apr-2019 16:20:56
[2019-04-22] MEDS ORDERED: MORPHINE SULFATE 10 MG/ML INJ IV ONE (16:41)
[2019-04-22] MEDS ORDERED: NITROGLYCERIN 2% OINTMENT 1 GM PACKET TP ONE (16:41)
[2019-04-22 17:07] LABS: ABSOLUTE EOSINOPHILS # (AUTO) 0.2 10^3/uL (0.0-0.6); ABSOLUTE LYMPHOCYTES (AUTO) 1.3 10^3/uL (0.5-4.7); ABSOLUTE MONOCYTES (AUTO) 0.7 10^3/uL (0.1-1.4); ABSOLUTE NEUT (AUTO) 2.4 10^3/uL (1.7-8.2); BASOPHILS % (AUTO) 0.9 % (0-2); EOSINOPHILS % (AUTO) 3.5 % (0-6); HEMATOCRIT 43.1 % (37.9-51.0); HEMOGLOBIN 14.9 g/dL (13.5-17.0); LYMPHOCYTES % (AUTO) 27.7 % (13-45); MEAN CORPUSCULAR HEMOGLOBIN 31.6 pg (27.0-33.4); MEAN CORPUSCULAR HGB CONC 34.6 g/dL (32.0-36.0); MEAN CORPUSCULAR VOLUME 91 fl (80-97); MONOCYTES % (AUTO) 15.3 % (3-13); PLATELET COUNT 138 10^3/uL (150-450); RED BLOOD COUNT 4.72 10^6/uL (4.35-5.55); RED CELL DISTRIBUTION WIDTH 14.2 % (11.5-14.0); SEGMENTED NEUTROPHILS % (AUTO) 52.6 % (42-78); TOTAL CELLS COUNTED % (AUTO) 100 %; WHITE BLOOD COUNT 4.7 10^3/uL (4.0-10.5)
[2019-04-22 17:14] LABS: ALBUMIN 3.8 g/dL (3.5-5.0); ALKALINE PHOSPHATASE 62 U/L (38-126); ANION GAP 11 (5-19); ASPARTATE AMINO TRANSFERASE 27 U/L (17-59); BILIRUBIN,DIRECT 0.3 mg/dL (0.0-0.4); BILIRUBIN,TOTAL 0.5 mg/dL (0.2-1.3); BLOOD UREA NITROGEN 14 mg/dL (7-20); CALCIUM 9.2 mg/dL (8.4-10.2); CARBON DIOXIDE 27 mmol/L (22-30); CHLORIDE 101 mmol/L (98-107); CREATINE KINASE 184 U/L (55-170); GLUCOSE 101 mg/dL (75-110); POTASSIUM 3.4 mmol/L (3.6-5.0); TOTAL PROTEIN 6.4 g/dL (6.3-8.2)
--- NOTE | 2019-04-22 17:20 | RADIOLOGY REPORT (SQ) ---
EXAM DESCRIPTION: CHEST 2 VIEWS COMPLETED DATE/TIME: 04/22/2019 5:04 pm REASON FOR STUDY: chest pain COMPARISON: Chest radiographs 07/11/2012 EXAM PARAMETERS: NUMBER OF VIEWS: two views TECHNIQUE: Digital Frontal and Lateral radiographic views of the chest acquired. RADIATION DOSE: NA LIMITATIONS: none FINDINGS: LUNGS AND PLEURA: No opacities, masses or pneumothorax. No pleural effusion. MEDIASTINUM AND HILAR STRUCTURES: No masses or contour abnormalities. HEART AND VASCULAR STRUCTURES: Heart normal size. No evidence for failure. BONES: No acute findings. HARDWARE: None in the chest. OTHER: Right upper abdominal surgical clips. IMPRESSION: NO ACUTE RADIOGRAPHIC FINDING IN THE CHEST. TECHNICAL DOCUMENTATION: JOB ID: [id number] [employer]- All Rights Reserved Reading location - IP/workstation name: [email or web address]
[2019-04-22 17:28] LABS: CREATINE KINASE MB 2.19 ng/mL (<4.55); TROPONIN I 0.019 ng/mL
--- NOTE | 2019-04-22 18:49 | ER Document Report ---
ED Cardiac - General TRAVEL OUTSIDE OF THE [place].S. IN LAST 30 DAYS: No - Related Data Home Medications: gabapentin, hydralazine, oxycodone, dicyclomine, tizanidine, carvedilol, oxybutynin, glipizide, atorvastatin, aspirin, famotidine, levothyroxine, lisinopril-hctz, clopidogrel <GILA HANKINS - Last Filed: 04/22/19 19:28> <FABIÁN ABRAHAM - Last Filed: 04/23/19 07:43> - General Chief Complaint: Chest Pain Stated Complaint: CHEST PAIN Time Seen by Provider: 04/22/19 17:24 Primary Care Provider: RICKY GONZALEZ MD [Primary Care Provider] - Follow up as needed Notes: 58-year-old male with history of [place] presents for sudden onset of sternal chest pain that started while he was working outside. Patient states it radiated into his neck and down his left arm. Patient states it felt like pressure. Patient took 1 dose of his sublingual nitro which relieved the pain. During transport patient started to have chest pain again and was given aspirin and 1 spray of nitro by EMS with resolution of chest pain. Patient states he is currently chest pain-free. Patient had associated nausea at one point. Patient states he has a history of hypertension, hyperlipidemia, diabetes, and family history of cardiac disease. Patient states he has 1 stent placed at [facility]. Patient sees his health concierge at [facility] every 6 months and states he is due to see him soon. (GILA HANKINS) - Related Data Allergies/Adverse Reactions: No Known Allergies Allergy (Verified 04/20/18 10:14) Past Medical History - Social History Smoking Status: Current Every Day Smoker Chew tobacco use (# tins/day): No Frequency of alcohol use: None Drug Abuse: None Family History: Reviewed & Not Pertinent Patient has suicidal ideation: No Patient has homicidal ideation: No - Past Medical History Cardiac Medical History: Reports: Hx Heart Attack - x2 apr 2018, Hx Hypercholesterolemia, Hx Hypertension Denies: Hx Coronary Artery Disease Pulmonary Medical History: Reports: Hx Pneumonia - April 2012 ("touch") Endocrine Medical History: Reports: Hx Diabetes Mellitus Type 1, Hx Diabetes Mellitus Type 2, Hx Hypothyroidism Renal/ Medical History: Denies: Hx Peritoneal Dialysis Malignancy Medical History: Reports 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., Reports Hx Prostate Cancer - AUGUST 2000 GI Medical History: Reports: Hx Gastroesophageal Reflux Disease Psychiatric Medical History: Reports: Hx Depression Past Surgical History: Reports: Hx Cardiac Catheterization - IN 2007 NO STENT, "VEIN WAS TOO WEAK, SO THEY LEFT IT BLOCKED", Hx Cholecystectomy - 08/2012, Hx Genitourinary Surgery - prostate, Hx Tonsillectomy - Immunizations Hx Diphtheria, Pertussis, Tetanus Vaccination: Yes - Tetanus only Hx Pneumococcal Vaccination: 09/02/12 <GILA HANKINS - Last Filed: 04/22/19 19:28> Review of Systems <GILA HANKINS - Last Filed: 04/22/19 19:28> - Review of Systems Notes: Constitutional: Negative for fever. HENT: Negative for sore throat. Eyes: Negative for visual changes. Cardiovascular: Positive for chest pain. Respiratory: Negative for shortness of breath. Gastrointestinal: Negative for abdominal pain, vomiting or diarrhea. Genitourinary: Negative for dysuria. Musculoskeletal: Negative for back pain. Skin: Negative for rash. Neurological: Negative for headaches, weakness or numbness. 10 point ROS negative except as marked above and in HPI. (GILA HANKINS) Physical Exam <GILA HANKINS - Last Filed: 04/22/19 19:28> - Vital signs Vitals: Resp Pulse Ox 12 93 04/22/19 16:13 04/22/19 16:13 - Notes Notes: GENERAL: Well-appearing, well-nourished and in no acute distress. HEAD: Atraumatic, normocephalic. EYES: Extraocular movements intact, sclera anicteric, conjunctiva are normal. NECK: Normal range of motion, supple without lymphadenopathy or JVD. LUNGS: Breath sounds clear to auscultation bilaterally and equal. No wheezes rales or rhonchi. HEART: Regular rate and rhythm without murmurs, rubs or gallops. ABDOMEN: Soft, nontender, normoactive bowel sounds. No guarding, no rebound. No masses appreciated. EXTREMITIES: Normal range of motion, no pitting or edema. No clubbing or cyanosis. NEUROLOGICAL: Cranial nerves II through XII grossly intact. Normal speech, normal gait. PSYCH: Normal mood, normal affect. SKIN: Warm, Dry, normal turgor, no rashes or lesions noted. (GILA HANKINS) Course - Laboratory Result Diagrams: 04/22/19 16:15 04/22/19 16:15 <GILA HANKINS - Last Filed: 04/22/19 19:28> - Laboratory Result Diagrams: 04/22/19 16:15 04/22/19 16:15 <FABIÁN ABRAHAM - Last Filed: 04/23/19 07:43> - Re-evaluation Re-evalutation: 04/22/19 58-year-old male presents with chest pain radiating into his neck and down his left arm that was improved with nitro patient's EKG shows no ST elevation. Patient's initial troponin is 0.019. Chest x-ray is unremarkable. Lab work is reassuring. Patient is currently chest pain-free. (GILA HANKINS) I assumed care for this patient. Second troponin is negative. Chest x-ray unremarkable, general work-up unremarkable. Patient does have multiple cardiac risk factors and had cardiac cath and stent earlier this year. He follows with [facility] cardiology. I discussed with patient admission to the hospital, he states he would much prefer to go home, he states he has no current pain. I discussed with patient still, after discussion we decided I will contact cardiology on- call at [facility]. I was able to contact Dr. Jaron Dang, I discussed patient's history, presentation, symptoms, work-up. He states patient does not have an appointment until May but he will have the office call patient tomorrow for close follow-up to be established. He feels at this time it is appropriate for patient be discharged with strict return precautions. Patient is very agreeable with this, he states that he will follow-up closely with cardiology at [facility] de spite it being far away. He states he will return if he develops any returned or worsening symptoms. Stable and symptom-free at time of discharge. (FABIÁN ABRAHAM) - Vital Signs Vital signs: Temp Pulse Resp BP Pulse Ox 98.4 F 18 169/63 H 94 04/22/19 22:01 04/22/19 22:01 04/22/19 22:01 04/22/19 22:01 - Laboratory Laboratory results interpreted by me: 04/22/19 04/22/19 16:15 16:15 RDW 14.2 H Plt Count 138 L [place] % (Auto) 15.3 H Potassium 3.4 L Creatine Kinase 184 H Discharge <GILA HANKINS - Last Filed: 04/22/19 19:28> <FABIÁN ABRAHAM - Last Filed: 04/23/19 07:43> - Discharge Clinical Impression: Chest pain Qualifiers: Chest pain type: unspecified Qualified Code(s): R07.9 - Chest pain, unspecified Condition: Stable Disposition: HOME, SELF-CARE Additional Instructions: Your evaluation tonight at this time is reassuring. I spoke with Dr. Jaron Dang, on-call for your health concierge. They will be contacting you tomorrow for close follow-up because your next appointment is not until May. Please follow-up with them closely for additional management. Return if you worsen in any way including return pain, dizziness, passing out, vomiting, fever, difficulty breathing, or any other concerning symptoms. Referrals: RICKY GONZALEZ MD [Primary Care Provider] - Follow up as needed
[2019-04-22 22:11] VITALS: BP 169/63
== END 2019-04-22 22:17 | disposition home or self-care (01) ==
LOC: ER 16:02
DX: R07.9 Chest pain, unspecified (principal); F17.200 Nicotine dependence, unspecified, uncomplicated; E78.00 Pure hypercholesterolemia, unspecified; I10 Essential (primary) hypertension; E11.9 Type 2 diabetes mellitus without complications; E03.9 Hypothyroidism, unspecified; I25.2 Old myocardial infarction; Z90.49 Acquired absence of other specified parts of digestive tract
CPT/HCPCS: 93005; 99285; 96374; 36415; 82553; 82550; 85025; 80053; 84484; 71046; 93010; A9270; J2270

== ENCOUNTER → 2019-09-03 | Outpatient (CLI) | payer MEDICARE ==
[2019-09-03 09:20] LABS: ALBUMIN 4.5 g/dL (3.5-5.0); ALKALINE PHOSPHATASE 50 U/L (38-126); ASPARTATE AMINO TRANSFERASE 22 U/L (17-59); BILIRUBIN,TOTAL 0.5 mg/dL (0.2-1.3); TOTAL PROTEIN 6.4 g/dL (6.3-8.2); TRIGLYCERIDES 118 mg/dL (<150)
[2019-09-03 09:31] LABS: DIRECT LDL 31 mg/dL (<100)
== END ==
LOC: OD 08:24
PROVIDERS: ATTEND Family Medicine
DX: E78.2 Mixed hyperlipidemia (principal)
CPT/HCPCS: 36415; 80061; 80076

== ENCOUNTER → 2019-10-15 | Outpatient (CLI) | payer MEDICARE ==
[2019-10-15 10:17] LABS: HEMOGLOBIN 14.4 g/dL (13.5-17.0); MEAN CORPUSCULAR HEMOGLOBIN 31.8 pg (27.0-33.4); MEAN CORPUSCULAR HGB CONC 34.3 g/dL (32.0-36.0); MEAN CORPUSCULAR VOLUME 93 fl (80-97); PLATELET COUNT 164 10^3/uL (150-450); RED BLOOD COUNT 4.52 10^6/uL (4.35-5.55); RED CELL DISTRIBUTION WIDTH 14.4 % (11.5-14.0); WHITE BLOOD COUNT 11.2 10^3/uL (4.0-10.5)
[2019-10-15 10:22] LABS: INTERNATIONAL RATION (INR) 1.09; PROTHROMBIN TIME 14.1 SEC (11.4-15.4)
[2019-10-15 10:51] LABS: ANION GAP 6 (5-19); BLOOD UREA NITROGEN 25 mg/dL (7-20); CALCIUM 8.4 mg/dL (8.4-10.2); CARBON DIOXIDE 28 mmol/L (22-30); CHLORIDE 101 mmol/L (98-107); POTASSIUM 4.1 mmol/L (3.6-5.0)
[2019-10-15 11:19] LABS: GLUCOSE 435 mg/dL (75-110)
== END ==
LOC: OD 08:45
PROVIDERS: ATTEND Student in an Organized Health Care Education/Training Program
DX: R32 Unspecified urinary incontinence (principal)
CPT/HCPCS: 36415; 80048; 85027; 85610; 85730; 87086

== ENCOUNTER → 2019-10-27 | Outpatient (CLI) | payer MEDICARE ==
--- NOTE | 2019-10-27 17:01 | RADIOLOGY REPORT (SQ) ---
EXAM DESCRIPTION: CT TEMPORAL BONES WO IMAGES COMPLETED DATE/TIME: 10/27/2019 1:34 pm REASON FOR STUDY: H73.891 OTHER SPECIFIED DISORDERS OF TYMPANIC MEMBRANE, RIGHT EAR H73.891 OTHER S PECIFIED DISORDERS OF TYMPANIC MEMBRANE, RIGH COMPARISON: None. TECHNIQUE: Noncontrasted thin section axial images through the temporal bones and skull base were ob tained and reviewed at bone windows and bone algorithm with coronal and sagittal reconstructions. All CT scanners at this facility use dose modulation, iterative reconstruction, and/or weight based d osing when appropriate to reduce radiation dose to as low as reasonably achievable (ALARA). [facility]: Dose Right [facility]: CareDose [facility]: Dose Right [facility]: Teradose 4D [facility]: [employer] RADIATION DOSE: 14 mGy LIMITATIONS: None. FINDINGS: RIGHT SIDE: EXTERNAL AUDITORY CANAL: Widely patent. TYMPANIC MEMBRANE: Medially retracted OSSICLES AND MIDDLE EAR CAVITY: Middle ear cavity is near completely opacified. At the tympanum opac ified. Mastoid air cells opacified. There is thinning of the tympanii/demineralization on coronal i mage 135-142, sagittal images 98-106. Normal size ossicles with grossly normal density. INNER EAR STRUCTURES: Normal vestibule and cochlea. Normal aqueducts. INTERNAL AUDITORY CANAL: Normal bony canal without narrowing or widening. No calcified or ossified m asses. TEMPOROMANDIBULAR JOINT: Normal. MASTOID AIR CELLS: Opacified with fluid LEFT SIDE: EXTERNAL AUDITORY CANAL: Widely patent. TYMPANIC MEMBRANE: No masses, thickening or medial retraction. OSSICLES AND MIDDLE EAR CAVITY: Normal ossicles. No middle ear masses or fluid. INNER EAR STRUCTURES: Normal vestibule and cochlea. Normal aqueducts. INTERNAL AUDITORY CANAL: Normal bony canal without narrowing or widening. No calcified or ossified m asses. TEMPOROMANDIBULAR JOINT: Normal. MASTOID AIR CELLS: Clear. CENTRAL SKULL BASE: Normal foramina. No lytic or blastic lesions. 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 Mucous membrane thickening along the right sphenoid ethmoid junction IMPRESSION: Opacified right mastoid and middle ear with thinning of the right tegmen tympanii TECHNICAL DOCUMENTATION: JOB ID: [id number] Quality ID # [id number]: Final reports with documentation of one or more dose reduction techniques (e.g., Au tomated exposure control, adjustment of the mA and/or kV according to patient size, use of iterative reconstruction technique) 2010 [employer]- All Rights Reserved Reading location - IP/workstation name: [email or web address]
== END ==
LOC: RAD 13:15
PROVIDERS: ATTEND Otolaryngology
DX: H73.891 Other specified disorders of tympanic membrane, right ear (principal)
CPT/HCPCS: 70482

== ENCOUNTER → 2019-12-11 | Outpatient (CLI) | payer MEDICARE ==
[2019-12-11 10:21] LABS: ANION GAP 8 (5-19); BLOOD UREA NITROGEN 17 mg/dL (7-20); CALCIUM 9.3 mg/dL (8.4-10.2); CARBON DIOXIDE 26 mmol/L (22-30); CHLORIDE 107 mmol/L (98-107); GLUCOSE 102 mg/dL (75-110); POTASSIUM 3.9 mmol/L (3.6-5.0)
[2019-12-13 06:36] LABS: CREATININE URINE 71.3 mg/dL (Not Estab.); MICROALBUMIN URINE 99.4 ug/mL (Not Estab.)
== END ==
LOC: OD 08:39
PROVIDERS: ATTEND Family Medicine
DX: E11.69 Type 2 diabetes mellitus with other specified complication (principal)
CPT/HCPCS: 36415; 80048; 82043; 82570; 83036